=== PATIENT | female | born 1990 | race Caucasian/White ===

== ENCOUNTER 2023-02-08 19:04 | Emergency (ER) | payer MEDICAID ==
[2023-02-08] MEDS ORDERED: ACETAMINOPHEN 1,000 MG/100 ML 1,000 MG/100 ML BAG IV STA (19:35)
--- NOTE | 2023-02-08 19:47 | ED Physician Documentation ---
PD HPI ABD PAIN - Stated complaint Stated Complaint: ABD PX - Chief complaint Chief Complaint: Abd Pain - History obtained from History obtained from: Patient - History of Present Illness Timing - duration: Months (several) Timing - details: Gradual onset Pain level max: 8 Pain level now: 8 Associated symptoms: No: Fever, Hematemesis, Constipation, Melena, Hematochezia, Dysuria, Hematuria - Additional information Additional information: Patient is a 32-year-old female who presents to the emergency department with diffuse abdominal pain for the past several months. She states worsening for the past several weeks. She went to the walk-in clinic today and was told to come here. She has a history of IV drug abuse, methamphetamine abuse. She states she last used 3 days ago. She had been on Suboxone "3-4 strips per day" and is now down to one quarter of a strip per day. She does not want to go to rehab or detox. She states that she is having diarrhea as well. Denies any recent antibiotics. No fevers. No chills. Nothing makes it better or worse. She has only been here for about a month. She states that she had a partial hysterectomy in the past. Review of Systems Constitutional: denies: Fever, Chills GI: denies: Vomiting, Hematemesis, Bloody / black stool : denies: Dysuria Skin: denies: Rash Musculoskeletal: denies: Neck pain, Back pain Neurologic: denies: Headache PD PAST MEDICAL HISTORY - Past Medical History Past Medical History: Yes Other Past Medical History: substance abuse - Past Surgical History Past Surgical History: Yes /INSULATION APPLICATOR: Hysterectomy - Present Medications Home Medications: Ambulatory Orders Medication Instructions Recorded Confirmed Dicyclomine [Bentyl] 10 mg PO QID PRN #30 cap 02/08/23 polyethylene glycoL 3350(BULK) 17 gm PO DAILY PRN #1 each 02/08/23 [Miralax] - Allergies Allergies/Adverse Reactions: Allergies Allergy/AdvReac Type Severity Reaction Status Date / Time ibuprofen Allergy Hallucinati Verified 02/08/23 19:08 [From DayQuil Sinus ons Pressure/Pain] morphine Allergy Hives Verified 02/08/23 19:08 Penicillins Allergy Hives Verified 02/08/23 19:08 pseudoephedrine Allergy Hallucinati Verified 02/08/23 19:08 [From DayQuil Sinus ons Pressure/Pain] - Social History Does the pt smoke?: Yes Does the pt drink ETOH?: Yes Does the pt have substance abuse?: Yes Substance Use and Type: Meth - Family History Family history: reports: Non contributory PD ED PE NORMAL - Vitals Vital signs reviewed: Yes - General General: Alert and oriented X 3, No acute distress - HEENT HEENT: Moist mucous membranes - Neck Neck: Supple, no meningeal sign - Cardiac Cardiac: RRR, Strong equal pulses - Respiratory Respiratory: No respiratory distress, Clear bilaterally - Abdomen Abdomen: Soft, Non distended, Other (Mild diffuse tenderness to palpation. No peritoneal signs.) - Back Back: No CVA TTP, No spinal TTP - Derm Derm: Warm and dry, No rash - Extremities Extremities: No edema, No calf tenderness / cord - Neuro Neuro: Alert and oriented X 3 - Psych Psych: Normal mood, Normal affect Results - Vitals Vitals: Vital Signs - 24 hr 02/08/23 02/08/23 02/08/23 19:08 20:30 22:23 Temperature 36.5 C Heart Rate 100 80 83 Respiratory 16 16 18 Rate Blood Pressure 129/87 H 138/89 H 125/87 H O2 Saturation 96 100 100 02/08/23 22:58 Temperature Heart Rate 87 Respiratory 18 Rate Blood Pressure 125/87 H O2 Saturation 100 Oxygen O2 Source Room air - Labs Labs: Laboratory Tests 02/08/23 02/08/23 02/08/23 19:50 20:40 20:40 WBC 6.1 RBC 4.56 Hgb 13.2 Hct 39.7 MCV 87.1 MCH 28.9 MCHC 33.2 RDW 13.4 Plt Count 318 MPV 9.1 Neut # (Auto) 2.9 Lymph # (Auto) 2.5 [place] # (Auto) 0.6 Eos # (Auto) 0.1 Baso # (Auto) 0.0 Absolute Nucleated RBC 0.00 Nucleated RBC % 0.0 Sodium 138 Potassium 3.0 L Chloride 103 Carbon Dioxide 28 Anion Gap 7.0 BUN 15 Creatinine 0.7 Estimated GFR (MDRD) 96 Glucose 82 Calcium 9.3 Total Bilirubin 1.0 AST 15 ALT 11 Alkaline Phosphatase 53 Total Protein 7.1 Albumin 4.6 Globulin 2.5 Albumin/Globulin Ratio 1.8 Lipase 33 Urine Color YELLOW Urine Clarity CLEAR Urine pH 5.5 Ur Specific [place] >=1.030 H Urine Protein NEGATIVE Urine Glucose (UA) NEGATIVE Urine Ketones NEGATIVE Urine Occult Blood NEGATIVE Urine Nitrite NEGATIVE Urine Bilirubin NEGATIVE Urine Urobilinogen 0.2 (NORMAL) Ur Leukocyte Esterase NEGATIVE Ur Microscopic Review NOT INDICATED Urine Culture Comments NOT INDICATED - Rads (name of study) CT abd pelvis Relevant Findings:: Final report received, See rad report PD Medical Decision Making - ED course Complexity details: reviewed results, re-evaluated patient, considered differential, d/w patient ED course: Patient was a difficult IV stick, but I did start a 20-gauge IV in her right AC. Blood work does not show any significant abnormalities. CBC, chemistry are normal other than a mild hypokalemia, potassium 3.0. Urinalysis is negative. Abdomen pelvis CT do not show any acute abnormalities other than constipation. We will trial her on Bentyl and MiraLAX. We will have her follow-up with her PCP for further care. Abdomen is soft, nontender nondistended on serial exam. Tolerating p.o. without difficulty here. Patient counseled regarding signs and symptoms for which I believe and urgent re-evaluation would be necessary. Patient with good understanding of and agreement to plan and is comfortable going home at this time This document was made in part using voice recognition software. While efforts are made to proofread this document, sound alike and grammatical errors may occur. Departure - Departure Disposition: 01 Home, Self Care Clinical Impression: Abdominal pain Qualifiers: Abdominal location: unspecified location Qualified Code(s): R10.9 - Unspecified abdominal pain Constipation Qualifiers: Constipation type: unspecified constipation type Qualified Code(s): K59.00 - Constipation, unspecified Condition: Good Instructions: ED Abdominal Pain Female Non-Specific Abdominal Pain, ED Constipation Follow-Up: [facility] [place] [Provider Group] [facility] [Provider Group] [facility] [Provider Group] Stephany Schaefer MD [Provider Admit Priv/Credential] - Prescriptions: Dicyclomine [Bentyl] 10 mg PO QID PRN #30 cap PRN Reason: Abdominal Pain polyethylene glycoL 3350(BULK) [Miralax] 17 gm PO DAILY PRN #1 each PRN Reason: Constipation Comments: Your prescriptions were sent to [facility] in [place]. Please follow-up with your doctor for further care. Please return if you worsen. Your CT scan reading as below. You do have above average stool in your colon. We will try you on a laxative to see if this relieves her pain. Constipation can cause abdominal pain and to be painful. EXAM: [id number] CT/ABPEWO ([id number]) PROCEDURE: ABDOMEN/PELVIS WO INDICATIONS: abd pain TECHNIQUE: Noncontrast 5 mm thick sections acquired from the diaphragms to the symphysis. 5 mm coronal and sagittal reformats were then performed. For radiation dose reduction, the following was used: automated exposure control, adjustment of mA and/or kV according to patient size. COMPARISON: None. FINDINGS: Image quality: Good Lower chest: Unremarkable Solid organs: Liver is unremarkable. Gallbladder is unremarkable. No pathologic dilation of the biliary tree or pancreatic duct. No splenomegaly. No adrenal nodules. No hydronephrosis. Vessels and lymph nodes: No abdominal aortic aneurysm or pathologic adenopathy by size criteria. Bowel and peritoneum: No evidence of small bowel obstruction. No drainable abscess or pathologic ascites. Stool burden is moderate. Body wall: Unremarkable Pelvis: Bladder is unremarkable. Reproductive organs appear physiologic, but are difficult to evaluate on noncontrast CT, consider ultrasound if needed. Bones: No acute or suspicious osseous finding. IMPRESSION: Limited noncontrast CT without acute abdominopelvic abnormality. Moderate, above average fecal loading. Clinical followup is recommended. If there is new or worsening clinical concern, reimaging with IV contrast could be obtained if there are no contraindications. Forms: Activity restrictions Discharge Date/Time: 02/08/23 23:15
[2023-02-08 20:03] LABS: BILIRUBIN,URINE NEGATIVE (NEGATIVE); GLUCOSE, URINE (UA) NEGATIVE (NEGATIVE); KETONES,URINE (UA) NEGATIVE (NEGATIVE); LEUKOCYTE ESTERASE, URINE NEGATIVE (NEGATIVE); NITRITE,URINE NEGATIVE (NEGATIVE); OCCULT BLOOD,URINE NEGATIVE (NEGATIVE); PH,URINE 5.5 PH (5.0-7.5); PROTEIN,URINE NEGATIVE (NEGATIVE); UROBILINOGEN,URINE 0.2 (NORMAL) E.U./dL (NORMAL)
[2023-02-08 20:04] LABS: CLARITY,URINE CLEAR (CLEAR)
[2023-02-08 20:48] LABS: BASOPHILS % (AUTO) 0.7 %; EOSINOPHILS # (AUTO) 0.1 10^3/uL (0.0-0.7); EOSINOPHILS % (AUTO) 1.6 %; HCT - HEMATOCRIT 39.7 % (37.0-47.0); HGB - HEMOGLOBIN 13.2 g/dL (12.0-16.0); LYMPHOCYTES # (AUTO) 2.5 10^3/uL (1.5-3.5); LYMPHOCYTES % (AUTO) 40.7 %; MEAN CORPUSCULAR HEMOGLOBIN 28.9 pg (27.0-31.0); MEAN CORPUSCULAR HGB CONC 33.2 g/dL (32.0-36.0); MEAN CORPUSCULAR VOLUME 87.1 fL (81.0-99.0); MEAN PLATELET VOLUME 9.1 fL (7.9-10.8); MONOCYTES # (AUTO) 0.6 10^3/uL (0.0-1.0); NEUTROPHILS # (AUTO) 2.9 10^3/uL (1.5-6.6); NEUTROPHILS % (AUTO) 46.8 %; PLT - PLATELET COUNT 318 10^3/uL (130-450); RED BLOOD COUNT 4.56 10^6/uL (4.20-5.40); RED CELL DISTRIBUTION WIDTH 13.4 % (12.0-15.0); WHITE BLOOD COUNT 6.1 x10^3/uL (4.8-10.8)
[2023-02-08 21:01] LABS: ALBUMIN 4.6 g/dL (3.2-5.5); ALBUMIN/GLOBULIN RATIO 1.8 (1.0-2.2); CALCIUM 9.3 mg/dL (8.5-10.3); CREATININE 0.7 mg/dL (0.4-1.0); TOTAL PROTEIN 7.1 g/dL (6.7-8.2)
[2023-02-08] MEDS ORDERED: iohexoL-300 100 ML VIAL ONE (21:20)
[2023-02-08 22:35] VITALS: BP 125/87
--- NOTE | 2023-02-08 22:43 | CT Report ---
PROCEDURE: ABDOMEN/PELVIS WO INDICATIONS: abd pain TECHNIQUE: Noncontrast 5 mm thick sections acquired from the diaphragms to the symphysis. 5 mm coronal and sagi ttal reformats were then performed. For radiation dose reduction, the following was used: automated exposure control, adjustment of mA and/or kV according to patient size. COMPARISON: None. FINDINGS: Image quality: Good Lower chest: Unremarkable Solid organs: Liver is unremarkable. Gallbladder is unremarkable. No pathologic dilation of the bilia ry tree or pancreatic duct. No splenomegaly. No adrenal nodules. No hydronephrosis. Vessels and lymph nodes: No abdominal aortic aneurysm or pathologic adenopathy by size criteria. Bowel and peritoneum: No evidence of small bowel obstruction. No drainable abscess or pathologic asci nelli. Stool burden is moderate. Body wall: Unremarkable Pelvis: Bladder is unremarkable. Reproductive organs appear physiologic, but are difficult to evaluat e on noncontrast CT, consider ultrasound if needed. Bones: No acute or suspicious osseous finding. IMPRESSION: Limited noncontrast CT without acute abdominopelvic abnormality. Moderate, above average fecal loadin g. Clinical followup is recommended. If there is new or worsening clinical concern, reimaging with IV contrast could be obtained if there are no contraindications. Reviewed by: Mert Goldstein MD on 02/08/2023 10:42 PM PDT Approved by: Mert Goldstein MD on 02/08/2023 10:42 PM PDT Station ID: [id number]
== END 2023-02-08 23:15 | disposition home or self-care (01) ==
LOC: ED 19:04
DX: K59.00 Constipation, unspecified (principal); R10.9 Unspecified abdominal pain
CPT/HCPCS: 36415; 74176; 80053; 81003; 83690; 85025; 99283; 99284; J0131; Q9967; 81001; 87086